=== PATIENT | female | born 1950 | race Caucasian/White ===

== ENCOUNTER 2017-05-01 10:50 | Outpatient (CLI) | payer OTHER | END 2017-05-01 10:51 | disposition home or self-care (01) | LOC: BICMAMMO 10:50 | PROVIDERS: ATTEND Internal Medicine | DX: Z12.31 Encounter for screening mammogram for malignant neoplasm of breast (principal) | CPT/HCPCS: 77067 ==

== ENCOUNTER 2017-08-13 20:24 | Observation (INO) | payer MEDICARE, OTHER ==
[2017-08-13] MEDS ORDERED: Nitroglycerin 2% Ointment 1 INCH/1 GM Packet ONE (21:32)
[2017-08-13 21:46] LABS: #Monocytes 0.3 thou/uL (0.11-0.59); #Neutrophils 5.6 thou/uL (1.40-6.50); %Basophils 0.3 % (0.0-1.0); %Eosinophils 0.7 % (0.0-10.0); %Lymphocytes 13.8 % (21.0-51.0); %Monocytes 4.8 % (0.0-10.0); %Neutrophils 80.4 % (42.0-75.0); Hemoglobin 15.2 g/dL (12.0-16.0); Mean Corpuscular HGB CONC 34.9 g/dL (32.0-36.0); Mean Corpuscular Hemoglobin 26.8 pg (27.0-31.0); Mean Corpuscular Volume 76.9 fL (78.0-98.0); Mean Platelet Volume 6.7 fL (7.4-10.4); Platelet Count 156 thou/uL (130-400); RBC Distribution Width 13.1 % (11.5-14.5); Red Blood Cell (RBC) Count 5.67 mill/uL (4.20-5.40)
--- NOTE | 2017-08-13 21:58 | PDOC.FPRHP ---
- History of Present Illness Chief Complaint: N/V elevated BP History of Present Illness: 67 yo F w/ PMH of DMII, htn, hld and anxiety presents from [place] [facility] for evaluation of elevated BP and mildly elevated troponins. Pt reports 2 day h/o intermittent "clammy" sensation with associated nausea and vomiting. Additionally, reports elevated BP that she associates with these feelings. Pt currently denies chest pain although she reports occasional discomfort over the last 2 weeks that is intermittent, non-exertional w/o identifiable exacerbating or remitting symptoms. She had a cardiac stress done within the last year at the [facility] that was normal and has had an echo that was normal; however, that was done several years ago. She reports some mild edema in her LE that is chronic and unchanged for which she takes prn lasix for. Otherwise, she denies fever, chills, diarrhea, constipation, abdominal pain. ED Course: Aspirin childrens X4, nitro paste - Allergies/Adverse Reactions Allergies Allergy/AdvReac Type Severity Reaction Status Date / Time No Known Allergies Allergy Verified 08/14/17 01:58 - Home Medications Medication Instructions Recorded Confirmed Type Amlodipine [Norvasc] 10 mg PO DAILY 08/14/17 08/14/17 History Atenolol 12.5 mg PO DAILY 08/14/17 08/14/17 History Atorvastatin Calcium [Lipitor] 80 mg PO HS 08/14/17 08/14/17 History Hydrochlorothiazide 25 mg PO DAILY 08/14/17 08/14/17 History Insulin Aspart [NovoLOG FlexPen] 0 unit SC TID-WM 08/14/17 08/14/17 History Levemir Flexpen [Levemir Flexpen] 56 unit SC HS 08/14/17 08/14/17 History Lisinopril [Zestril] 20 mg PO DAILY 08/14/17 08/14/17 History Potassium Chloride [Klor-Con 10] 10 meq PO DAILY 08/14/17 08/14/17 History Zolpidem Tartrate [Ambien] 5 mg PO HS PRN 08/14/17 08/14/17 History buPROPion HCl [Bupropion Xl] 150 mg PO DAILY 08/14/17 08/14/17 History - History PMHx: HTN, HLD, DMII, anxiety PSHx: Hysterectomy, csection X2, rt foot bone spur removal FHx: maternal DMII, Paternal CVA @ age 65 Social: denies tobacco, rare alcohol, denies drug use - Review of Systems General: reports: weight/appetite/sleep changes. denies: fever/chills, night sweats, fatigue Eyes: denies: vision changes ENT: denies: nasal congestion, rhinorrhea Respiratory: denies: cough, congestion, shortness of breath, exercise intolerance Cardiovascular: reports: edema. denies: chest pain, palpitation Gastrointestinal: reports: nausea, vomiting. denies: diarrhea, constipation, abdominal pain Genitourinary: denies: incontinence, dysuria Skin: denies: rashes, lesions Musculoskeletal: reports: pain (rt foot). denies: swelling Neurological: denies: numbness, syncope, weakness Psychological: reports: anxiety - Vital signs BP: 159/69 HR: 66-85 RR: 15-22 Tmax: 98.6 Pox: 97% on RA Wt: 122Kg - Physical Exam Constitutional: NAD, awake, alert and oriented HEENT: normocephalic and atraumatic, PERRLA, EOMI, conjunctiva clear, no scleral icterus, grossly normal vision, grossly normal hearing Neck: supple, trachea midline, no LAD, no JVD, no thyromegaly Heart: RRR, normal S1/S2, no murmurs/rubs/gallops, pulses present, other (trace edema) Lungs: CTAB, no respiratory distress, good air movement, no rales/rhonchi, no wheezing, no retractions Abdomen: soft, non-tender, bowel sounds present, no masses/distention Musculoskeletal: normal structure, normal tone Neurological: no focal deficit, CN II-XII intact Skin: no rash/lesions, good turgor, capillary refill <2 seconds, no jaundice Heme/Lymphatic: no purpura, no petechia, no LAD Psychiatric: normal mood and affect, other (appears anxious) FMR H&P: Results - Labs Result Diagrams: 08/14/17 05:09 08/14/17 05:09 Lab results: WBC 7.0 thou/uL (4.8-10.8) 08/13/17 21:37 Hgb 15.2 g/dL (12.0-16.0) 08/13/17 21:37 Hct 43.6 % (36.0-47.0) 08/13/17 21:37 MCV 76.9 fL (78.0-98.0) L 08/13/17 21:37 Plt Count 156 thou/uL (130-400) 08/13/17 21:37 Neutrophils % 80.4 % (42.0-75.0) H 08/13/17 21:37 - EKG Interpretation EKG: NSR Rate 73 - Radiology Interpretation Chest x-ray Status: image reviewed by me (Cardiomegaly, elevated Rt hemidiaphragm), report reviewed by me FMR H&P: A/P - Problem List (1) Atypical chest pain Current Visit: Yes Status: Acute Code(s): R07.89 - OTHER CHEST PAIN (2) Hypertensive urgency Current Visit: Yes Status: Acute Code(s): I16.0 - HYPERTENSIVE URGENCY (3) DMII (diabetes mellitus, type 2) Current Visit: Yes Status: Acute (4) HLD (hyperlipidemia) Current Visit: Yes Status: Acute Code(s): E78.5 - HYPERLIPIDEMIA, UNSPECIFIED (5) Anxiety Current Visit: Yes Status: Acute Code(s): F41.9 - ANXIETY DISORDER, UNSPECIFIED - Plan 1.Atypial chest pain most likely related to demand from elevated BP-obs tele, HEART score is 4 but reports negative stress within last year, will obtain records in AM. Risk stratify with A1c, FLP, Mg, Phos, TSH. NPO after mn, hold nitrates, BB, caffeine, nicotine after then as well if we cannot verify. Continue asa. Obtain BNP w/cardiomegaly on XR, no reports of PND or orthopnea. Reports remote hx of echo 2.Hypertensive urgency- work to slowly bring down BP, currently in 160s/80s in room 3.DM II- reports she takes 56 U of levemir night and 14 U of aspart w/ meals. Last A1c was 7.2 per pt 4.Hld- continue home statin 5.Obesity-discussed weight loss 6.DVT ppx-lovenox 7. Code status: full code, discussed with pt at bedside Disposition/LOS: Stable, </= 2 days FMR H&P: Upper Level - Plan Date/Time: 08/13/17 2156 Pt is a 67 yo F w/PMH of DM II, hld, htn and obesity who presents as a transfer from the [place] [facility] for chest pressure and headache. She stated that she had been having worsening head pressure nausea and shortness of breath for the last couple of days. Reports vomiting today x2 and feeling like she was going to pass out and had an elevated pressure at home which is why she went to ED, found to have BP of 184/105. She denies chest pain, but endorses chest pressure and heaviness. Given 4 asa in the ER and nitro here after transfer. HEART score of 4. EKG shows NSR, no ST changes and a rate of 73. Reports that she had a stress test that was normal < 1 year ago, will obtain records from Dr. Edge at the [place] in . Initial trop was negative, second is indeterminant , and third is negative, d-dimer negative, chest xr shows cardiomegaly. General: AOx3, appears in no acute distress, appropriately dressed, groomed, appears approximate stated age, obese HEENT: moist mucus membranes, no pharyngeal edema Cardiac: RRR, no murmurs, gallops, clicks or rubs Lungs: CTA, no wheezes, rales, rubs, rhonchi Abdomen: soft, non TTP, normoactive bs, no abdominal mass or pulsation Extremities: No TTP, no swelling, cyanosis, no pitting edema 1. Atypial chest pain most likely related to demand from elevated BP-obs tele , HEART score is 4 but reports negative stress within last year, will obtain records in AM. Risk stratify with A1c, FLP, Mg, Phos, TSH. NPO after mn, hold nitrates, BB, caffeine, nicotine after then as well if we cannot verify. Continue asa. Obtain BNP w/cardiomegaly on XR, no reports of PND or orthopnea. Reports remote hx of echo 2. Hypertensive urgency- work to slowly bring down BP, currently in 160s/80s in room 3. DM II- reports she takes 56 U of levemir night and 14 U of aspart w/ meals. Last A1c was 7.2 per pt 4. Hld- continue home statin 5. Obesity-discussed weight loss 6. DVT ppx-lovenox I, Mala Duffy, have evaluated this patient and agree with findings/plan as outlined by Dr. Sun. Pertinent changes/additions are listed here. Attending Addendum - Attending Addendum Date/Time: 08/14/17 0808 I personally evaluated the patient and discussed the management with Dr. Sun I agree with the History, Examination, Assessment and Plan documented above with any addition or exceptions noted below. 67 yo female with multiple risk factors for CAD admit atypical CP r/o ACS, EKG and troponins trended.Initial EKG with no acute ischemia noted. Patient followed at [facility] nuclear stress testing done in [place], [place] appr 1 1/2 years ago will recommend further evaluation and echocardiogram if none recent. Consider uncontrolled HTN as precipitating factor.
[2017-08-13 22:06] LABS: ALT (SGPT) 16 U/L (8-55); AST (SGOT) 16 U/L (5-34); Albumin 4.2 g/dL (3.4-4.8); Alkaline Phosphatase 115 U/L (40-150); Anion Gap 14 mmol/L (10-20); BUN (Urea Nitrogen) 15 mg/dL (9.8-20.1); Bilirubin, Total 0.6 mg/dL (0.2-1.2); Calc. Creatinine Clearance 0 mL/min (70-130); Calcium 9.6 mg/dL (7.8-10.44); Carbon Dioxide 24 mmol/L (23-31); Chloride 102 mmol/L (98-107); Estimated GFR-MDRD 69; Globulin 3.7 g/dL (2.4-3.5); Glucose 203 mg/dL (80-115); Potassium 3.9 mmol/L (3.5-5.1); Protein, Total 7.9 g/dL (6.0-8.3); Sodium 136 mmol/L (136-145)
[2017-08-13 22:10] LABS: CKMB 1.5 ng/mL (0-6.6); Troponin I Less than 0.010 ng/mL (< 0.028)
[2017-08-13] MEDS ORDERED: Dextrose 5% in Water 1,000 ML IV PRN (22:47)
[2017-08-13] MEDS ORDERED: Ondansetron ODT 4 MG TAB PO PRN (22:47)
[2017-08-13] MEDS ORDERED: Calcium Carbonate 500 MG ChewTAB PO PRN (22:47)
[2017-08-13] MEDS ORDERED: Acetaminophen 325 MG TAB PO PRN (22:47)
[2017-08-13] MEDS ORDERED: Ondansetron HCl/PF 4 MG/2 ML Vial IVP PRN (22:47)
[2017-08-13] MEDS ORDERED: Dextrose 50% Abboject 50 ML SYRINGE SLOW IVP PRN (22:47)
[2017-08-13] MEDS ORDERED: Nitroglycerin 0.4 MG TAB (25 Tab Bottle) PO PRN (22:49)
[2017-08-13] MEDS ORDERED: HumaLOG 300 UNITS/3 ML VIAL SC PRN (23:02)
[2017-08-13] MEDS ORDERED: Aspirin 325 MG TAB PO SCH (23:15)
[2017-08-14] MEDS ORDERED: hydrALAZINE 20 MG/ML VIAL SLOW IVP PRN (00:18)
[2017-08-14 01:03] LABS: Magnesium 1.8 mg/dL (1.6-2.6); Phosphorus 3.8 mg/dL (2.3-4.7)
[2017-08-14] MEDS ORDERED: Zolpidem Tartrate 5 MG TAB PO PRN (03:22)
[2017-08-14 05:20] LABS: #Lymphocytes 1.4 thou/uL (1.20-3.40); #Monocytes 0.5 thou/uL (0.11-0.59); #Neutrophils 4.3 thou/uL (1.40-6.50); %Eosinophils 0.8 % (0.0-10.0); %Lymphocytes 22.1 % (21.0-51.0); %Monocytes 7.4 % (0.0-10.0); %Neutrophils 69.7 % (42.0-75.0); Hemoglobin 13.5 g/dL (12.0-16.0); Mean Corpuscular HGB CONC 32.7 g/dL (32.0-36.0); Mean Corpuscular Hemoglobin 25.4 pg (27.0-31.0); Mean Corpuscular Volume 77.6 fL (78.0-98.0); Mean Platelet Volume 6.8 fL (7.4-10.4); Platelet Count 147 thou/uL (130-400); RBC Distribution Width 13.2 % (11.5-14.5); Red Blood Cell (RBC) Count 5.31 mill/uL (4.20-5.40); White Blood Cell (WBC) Count 6.2 thou/uL (4.8-10.8)
[2017-08-14 05:44] LABS: Anion Gap 13 mmol/L (10-20); BUN (Urea Nitrogen) 18 mg/dL (9.8-20.1); Calc. Creatinine Clearance 109 mL/min (70-130); Calcium 9.4 mg/dL (7.8-10.44); Carbon Dioxide 25 mmol/L (23-31); Cardiac Risk 3.7 (Less than 4.5); Chloride 102 mmol/L (98-107); Cholesterol 148 mg/dl (< 200 Desired); Estimated GFR-MDRD 58; Glucose 196 mg/dL (80-115); HDL Cholesterol 40 mg/dL (>60 Neg Risk); LDL Cholesterol, Calculated 81 mg/dL; Potassium 3.9 mmol/L (3.5-5.1); Sodium 136 mmol/L (136-145); Triglycerides 137 mg/dL (Less than 150)
[2017-08-14] MEDS ORDERED: Aspirin 325 MG TAB PO SCH (08:00)
[2017-08-14] MEDS ORDERED: Potassium Chloride 10 MEQ TAB PO SCH (09:00)
[2017-08-14] MEDS ORDERED: Lisinopril 20 MG TAB PO SCH (09:00)
[2017-08-14] MEDS ORDERED: Prevnar 13-Val Conj/PF 0.5 ML SYRINGE IM ONE (09:00)
[2017-08-14] MEDS ORDERED: Hydrochlorothiazide 25 MG TAB PO SCH (09:00)
[2017-08-14] MEDS ORDERED: Amlodipine 10 MG TAB PO SCH (09:00)
[2017-08-14] MEDS ORDERED: Bupropion 150 MG SR TAB PO SCH (09:00)
--- NOTE | 2017-08-14 12:12 | ULT ---
RIGHT UPPER QUADRANT ULTRASOUND: Date: 08/14/17 HISTORY: Nausea. Vomiting. COMPARISON: None. TECHNIQUE: Utilizing a multihertz transducer, sonographic imaging of the right upper quadrant was performed in t he longitudinal and transverse plane. FINDINGS: Pancreas obscured by bowel gas. Increased echogenicity of the liver, likely due to hepatic steatosis or hepatocellular disease. Evalu ation of the liver is also limited by bowel gas and body habitus. Limited evaluation of the right kidney. No hydronephrosis. Right kidney measures 9.6 cm in maximum di mension. Possible right renal cortical thinning. Main portal vein is patent. Appropriate direction of flow. Common bile duct diameter is 0.5 cm. No sonographic evidence of cholelithiasis, gallbladder wall thickening, or pericholecystic fluid. Neg ative Hair's sign. IMPRESSION: 1. Limited evaluation due to bowel gas and body habitus. 2. No sonographic evidence of cholelithiasis or cholecystitis. POS: [facility]
[2017-08-14 16:00] VITALS: TEMP 98.2
--- NOTE | 2017-08-14 16:26 | NM ---
STRESS ONLY NUCLEAR MEDICINE MYOCARDIAL PERFUSION SCAN: Date: 08-14-17 Comparison: None. History: Chest pain with shortness of breath. Technique: SPECT imaging of the left ventricular myocardium obtained during stress following the intr avenous administration of 30 mCi Technetium 99M Sestamibi. FINDINGS: No perfusion defect identified. Wall motion is normal. LVEF is estimated at 74% with an EDV of 79 ml and an EXV of 21 ml. IMPRESSION: Unremarkable stress only Nuclear Medicine myocardial perfusion scan. POS: [facility]
[2017-08-14 17:41] VITALS: BP 163/73
[2017-08-14] MEDS ORDERED: Insulin Glargine 56 UNITS in Pre-Filled Syringe 1 EACH SC SCH (21:00)
[2017-08-14] MEDS ORDERED: Famotidine 20 MG TAB PO SCH (21:00)
[2017-08-14] MEDS ORDERED: Atorvastatin Calcium 40 MG TAB PO SCH (21:00)
--- NOTE | 2017-08-15 11:15 | DIS-2 ---
DATE OF ADMISSION: 08/13/2017 DATE OF DISCHARGE: 08/15/2017 RESIDENT: Ciro Hernandez DO ADMITTING ATTENDING: Bakari Waldrop MD DISCHARGE ATTENDING: Bakari Waldrop MD CONSULTS: None. PROCEDURES: Echocardiogram on 08/14/2017, finding moderate concentric left ventricular hypertrophy with an ejection fraction of 60%-65%. E/A flow reversal noted suggestive of diastolic dysfunction, mild mitral regurgitation, mitral annular calcification and mild tricuspid regurgitation. Abdominal ultrasound on 08/14/2017, finding a limited evaluation due to bowel gas and body habitus; however, there is no sonographic evidence of cholelithiasis or cholecystitis. A nuclear stress test on 08/14/2017 with a unremarkable stress only nuclear medicine myocardial perfusion scan with an ejection fraction estimated at 74%. DISCHARGE MEDICATIONS: Lisinopril 20 mg p.o. daily, Ambien 5 mg p.o. at bedtime p.r.n. insomnia, potassium chloride 10 mEq p.o. daily, Levemir 56 units subcutaneous at bedtime, NovoLog subcu t.i.d. with meals by sliding scale, hydrochlorothiazide 25 mg p.o. daily, bupropion 150 mg p.o. daily, Norvasc 10 mg p.o. daily, atorvastatin 80 mg p.o. at bedtime, atenolol 12.5 mg p.o. daily. DISCONTINUED MEDICATIONS: None. LABORATORY DATA: At the time of admission included a troponin of 0.016, which trended to 0.030 and then trended to less than 0.010. There were no other significant lab abnormalities. TSH was checked and was found to be WNL. Liver panel was conducted, which found triglycerides of 137, cholesterol 148, LDL at 81, HDL at 40. HOSPITAL COURSE: This is a 67-year-old female with a medical history of type 2 diabetes, hypertension, hyperlipidemia, and anxiety, who was admitted from [facility] with concern for possible acute coronary syndrome. She had 2 days of intermittent clammy sensation with associated nausea and vomiting and chest tightness. The patient was monitored overnight on telemetry and [facility] [place] The patient stated that she had had a stress test within the previous 12-18 months and was not sure exactly when. Unfortunately over the course of next day, there is delay in receiving those records, therefore a stress test was ordered. The stress test was negative as detailed above. Labs for risk stratification were as above and all WNL. The patient was determined to be stable for discharge and follow up with her PCP in the outpatient setting. DISPOSITION: Stable. DISCHARGE INSTRUCTIONS: 1. Location: Home. 2. Diet: Heart healthy. 3. Activity: ad galo. 4. Followup: With PCP within 7 days. BETH
--- NOTE | 2017-08-18 10:08 | STRESS ---
Acquisition Time: 2017-08-14 13:37:09 Total Exercise Time: 00:04:00 Test Indications: ACS R/O Medications: Protocol: ADENOSINE Max HR: 094 BPM 60% of Pred: 155 BPM Max BP: 148/076 mmHG Max Work Load: 1.0 METS RESTING ECG: NORMAL SINUS RHYTHM AT 75 BPM WITH NON-SPECIFIC T-WAVE CHANGES SYMPTOMS: CHEST PAIN, SHORTNESS OF BREATH NORMAL BP RESPONSE ECTOPY: NONE ECG STRESS: NO SIGNIFICANT CHANGES INTERPRETATION: AWAIT NUCLEAR IMAGES FOR DEFINITIVE DIAGNOSIS Confirmed by ALISHA RAMSAY ([id number]), editor map JONATHAN BLACKMAN ([id number]) on 08/18/2017 10:08:09 AM Referred By: MD John JOHNSON Confirmed By:ALISHA RAMSAY
== END 2017-08-14 18:15 | disposition home or self-care (01) ==
LOC: ERS 20:24 → 2SW 22:47
PROVIDERS: ADMIT Emergency Medicine; ATTEND Emergency Medicine
DX: R07.89 Other chest pain (principal); I16.0 Hypertensive urgency; E11.9 Type 2 diabetes mellitus without complications; E78.5 Hyperlipidemia, unspecified; F41.9 Anxiety disorder, unspecified; E66.9 Obesity, unspecified; Z79.4 Long term (current) use of insulin; Z79.899 Other long term (current) drug therapy
CPT/HCPCS: 76705; 78452; 80048; 80053; 80061; 82553; 82962; 83735; 83880 ×2; 84100; 84443; 84484; 85025 ×2; 93005; 93017; 93306; 94760 ×2; 99285; A9500; G0378; 36415; 36416; 90471; 90670; 93010; A4216; G0009; J0153

== ENCOUNTER 2018-02-23 08:53 | Emergency (ER) | payer OTHER, MEDICARE ==
--- NOTE | 2018-02-23 10:11 | RAD ---
CHEST PA AND LATERAL: Date: 02/23/18 HISTORY: 67-year-old female with history of cough. COMPARISON: 08/13/17. FINDINGS: Heart size is within normal limits. The lungs are clear. No pneumonia, edema, pleural effusion, or ot her acute process. IMPRESSION: No acute intrathoracic disease. POS: [facility]
== END 2018-02-23 09:56 | disposition home or self-care (01) ==
LOC: ERS 08:53
DX: J20.9 Acute bronchitis, unspecified (principal); E78.5 Hyperlipidemia, unspecified; E11.9 Type 2 diabetes mellitus without complications; I10 Essential (primary) hypertension; F32.9 Major depressive disorder, single episode, unspecified; Z79.82 Long term (current) use of aspirin; Z79.899 Other long term (current) drug therapy; Z79.4 Long term (current) use of insulin
CPT/HCPCS: 71046